=== PATIENT | female | born 1945 | race African-American/Black ===

== ENCOUNTER 2023-09-05 09:43 | Emergency (ER) | payer MEDICARE, OTHER ==
[~2023-09-05] VITALS: Ht 170.2 cm; Wt 93.0 kg
[~2023-09-05 09:43] MED LIST: DICL100G16 TP; FAMO20TA8 PO; GLUC1CAP28 PO; GRAP50CA5 PO; HYDR-4005 PO; KRIL1CAP4 PO; LOPE2CAP14 PO; METH1ADH15 TP; NEOM30OI17 TP; PRED-855 PO; SULF1TAB48 PO; THERMACARE; TURMERIC; VINPOCETINE; [UNRECOGNIZED DRUG - OTHER]; [UNRECOGNIZED DRUG - OTHER]; [UNRECOGNIZED DRUG - OTHER]
[2023-09-05 09:45] VITALS: O2SAT 99
[2023-09-05 10:30] LABS: CLARITY URINE CLEAR (CLEAR); COLOR URINE RED (YELLOW); GLUCOSE URINE NEGATIVE (NEGATIVE); KETONES URINE NEGATIVE (NEGATIVE); LEUKOCYTE ESTERASE URINE 2+ (NEGATIVE); NITRITE URINE NEGATIVE (NEGATIVE); OCCULT BLOOD URINE 3+ (NEGATIVE); PROTEIN URINE 2+ (NEGATIVE); SPECIFIC GRAVITY URINE 1.006 (1.005-1.030); UROBILINOGEN URINE 0.2 E.U./dL (0.2-1.0)
[2023-09-05 10:43] LABS: WBC URINE 15-25 /hpf (0-2)
[2023-09-05 10:44] LABS: BACTERIA URINE TRACE; RBC URINE TNTC /hpf (0-2); SQUAMOUS EPITHELIAL CELL URINE 1+ /lpf (RARE/1+); YEAST URINE NONE SEEN
[2023-09-05 11:00] LABS: PROTHROMBIN TIME 10.9 sec (9.6-11.0)
[2023-09-05 11:19] LABS: BASOPHILS % 0.6 % (0.0-2.0); EOSINOPHILS % 3.4 % (0.0-5.0); HEMATOCRIT. 33.2 % (36.0-48.0); HEMOGLOBIN. 10.9 g/dL (12.0-16.0); LYMPHOCYTES % 25.3 % (20.0-50.0); MEAN CORPUSCULAR HEMOGLOBIN 27.8 pg (28.0-32.0); MEAN CORPUSCULAR HGB CONC 32.9 g/dL (31.0-37.0); MEAN CORPUSCULAR VOLUME 84.5 fL (81.0-99.0); MEAN PLATELET VOLUME 7.3 fl (7.4-10.4); MONOCYTES % 8.7 % (2.0-8.0); PLATELET 359 x1000/uL (130-400); RED BLOOD CELL COUNT 3.93 mill/uL (4.2-5.4); RED CELL DISTRIBUTION WIDTH 16.6 % (11.6-14.6); WHITE BLOOD COUNT 8.5 x1000/uL (4.5-11.0)
[2023-09-05 11:41] LABS: ALANINE AMINOTRANSFERASE 32 IU/L (10-49); ALBUMIN 3.9 g/dL (3.2-4.8); ASPARTATE AMINOTRANSFERASE 38 IU/L (<34); BILIRUBIN TOTAL 0.3 mg/dL (0.1-1.0); CALCIUM 8.6 mg/dL (8.7-10.4); CARBON DIOXIDE 28 mEq/L (21-32); CHLORIDE 104 mEq/L (98-107); CREATININE 0.9 mg/dL (0.6-1.0); GLUCOSE 114 mg/dL (70-105); POTASSIUM 3.6 mEq/L (3.5-5.1); PROTEIN TOTAL 7.1 g/dL (6.0-8.3); SODIUM 138 mEq/L (136-145); UREA NITROGEN BLOOD 8 mg/dL (9-23)
[2023-09-05] MEDS: CEFTRIAXONE 1GM/50ML 50 ML IV ONE (12:15)
[2023-09-05 14:53] VITALS: BP 137/68; PULSE 70; RESP 17; TEMP 97.1
== END 2023-09-05 15:05 | disposition short-term general hospital (02) ==
LOC: ER 09:54 → CANBEDREQ 09-08 00:24
DX: N39.0 Urinary tract infection, site not specified (principal); E11.9 Type 2 diabetes mellitus without complications; Z79.899 Other long term (current) drug therapy
CPT/HCPCS: 80053; 81003; 85025; 85610; 86850; 86900; 86901; 87086; 87186; 87077; 36415; 72170; 99285; J0696; Z7610 ×3

== ENCOUNTER 2023-12-10 18:09 | Emergency (ER) | payer MEDICARE, MEDICAID ==
[~2023-12-10] VITALS: Ht 172.7 cm; Wt 91.0 kg
[2023-12-10 18:11] VITALS: TEMP 99.8; O2SAT 98
[2023-12-10 19:27] VITALS: BP 135/64; PULSE 73; RESP 16
[2023-12-10] MEDS: IBUPROFEN 600MG TABLET PO STA (19:27)
[2023-12-10 19:45] LABS: BASOPHILS % 0.7 % (0.0-2.0); DIFFERENTIAL COMMENT 0; EOSINOPHILS % 2.1 % (0.0-5.0); HEMATOCRIT. 40.1 % (36.0-48.0); HEMOGLOBIN. 13.2 g/dL (12.0-16.0); MEAN CORPUSCULAR HEMOGLOBIN 26.2 pg (28.0-32.0); MEAN CORPUSCULAR HGB CONC 32.8 g/dL (31.0-37.0); MEAN CORPUSCULAR VOLUME 79.8 fL (81.0-99.0); MEAN PLATELET VOLUME 7.7 fl (7.4-10.4); MONOCYTES % 9.9 % (2.0-8.0); NEUTROPHILS % 54.3 % (40.0-76.0); PLATELET 224 x1000/uL (130-400); RED BLOOD CELL COUNT 5.03 mill/uL (4.2-5.4); RED CELL DISTRIBUTION WIDTH 14.9 % (11.6-14.6); WHITE BLOOD COUNT 9.1 x1000/uL (4.5-11.0)
[2023-12-10 19:56] LABS: POTASSIUM 4.3 mEq/L (3.5-5.1)
[2023-12-10 19:57] LABS: CALCIUM 9.9 mg/dL (8.7-10.4)
[2023-12-10 20:02] LABS: CREATININE 1.2 mg/dL (0.6-1.0)
[2023-12-10 20:26] LABS: CLARITY URINE CLEAR (CLEAR); COLOR URINE YELLOW (YELLOW); GLUCOSE URINE NEGATIVE (NEGATIVE); KETONES URINE NEGATIVE (NEGATIVE); LEUKOCYTE ESTERASE URINE 3+ (NEGATIVE); NITRITE URINE NEGATIVE (NEGATIVE); OCCULT BLOOD URINE TRACE (NEGATIVE); PROTEIN URINE NEGATIVE (NEGATIVE); SPECIFIC GRAVITY URINE 1.009 (1.005-1.030); UROBILINOGEN URINE 0.2 E.U./dL (0.2-1.0)
[2023-12-10 20:55] LABS: BACTERIA URINE 1+; RBC URINE 0-2 /hpf (0-2); SQUAMOUS EPITHELIAL CELL URINE FEW /lpf (RARE/1+); WBC URINE 15-25 /hpf (0-2)
[2023-12-10] MEDS ORDERED: IBUP-2028 MT (21:17)
[2023-12-10] MEDS ORDERED: CEFP200T13 MT (21:17)
== END 2023-12-10 20:10 | disposition home or self-care (01) ==
LOC: ER 18:09
DX: N39.0 Urinary tract infection, site not specified (principal); E11.9 Type 2 diabetes mellitus without complications; Z98.890 Other specified postprocedural states
CPT/HCPCS: 36415; 76856; 80048; 81003; 85025; 99284

== ENCOUNTER 2024-08-17 13:47 | Emergency (ER) | payer MEDICARE, OTHER ==
[~2024-08-17] VITALS: Ht 167.6 cm; Wt 70.0 kg
[~2024-08-17 13:47] MED LIST changes: +CIPR-263 MT; -DICL100G16 TP; -SULF1TAB48 PO; -[UNRECOGNIZED DRUG - OTHER]; -[UNRECOGNIZED DRUG - OTHER]
[2024-08-17 13:49] VITALS: BP 137/61; PULSE 70; RESP 16; TEMP 37.1; O2SAT 95
[2024-08-17] MEDS ORDERED: ACETAMINOPHEN 325MG TABLET PO ONE (15:15)
== END 2024-08-17 19:08 | disposition home or self-care (01) ==
LOC: ER 13:55
DX: M25.561 Pain in right knee (principal); M25.562 Pain in left knee; E11.9 Type 2 diabetes mellitus without complications; Z98.890 Other specified postprocedural states; W18.39XA Other fall on same level, initial encounter; Y93.89 Activity, other specified; Y92.89 Other specified places as the place of occurrence of the external cause; Y99.8 Other external cause status
CPT/HCPCS: 72192; 73552; 73560; 99284

== ENCOUNTER 2024-11-08 13:12 | Inpatient (IN) | payer MEDICARE, MEDICAID ==
[~2024-11-08] VITALS: Ht 167.6 cm; Wt 100.0 kg
[2024-11-08 13:17] VITALS: O2SAT 97
[2024-11-08 15:20] LABS: BASOPHILS % 0.9 % (0.0-2.0); EOSINOPHILS % 2.6 % (0.0-5.0); HEMATOCRIT. 36.5 % (36.0-48.0); HEMOGLOBIN. 11.8 g/dL (12.0-16.0); LYMPHOCYTES % 21.4 % (20.0-50.0); MEAN CORPUSCULAR HEMOGLOBIN 26.6 pg (28.0-32.0); MEAN CORPUSCULAR HGB CONC 32.2 g/dL (31.0-37.0); MEAN CORPUSCULAR VOLUME 82.5 fL (81.0-99.0); MEAN PLATELET VOLUME 8.4 fl (7.4-10.4); MONOCYTES % 7.5 % (2.0-8.0); NEUTROPHILS % 67.6 % (40.0-76.0); PLATELET 362 x1000/uL (130-400); RED BLOOD CELL COUNT 4.42 mill/uL (4.2-5.4); RED CELL DISTRIBUTION WIDTH 15.1 % (11.6-14.6); WHITE BLOOD COUNT 9.1 x1000/uL (4.5-11.0)
[2024-11-08 16:55] LABS: CHLORIDE 108 mEq/L (98-107); POTASSIUM 4.2 mEq/L (3.5-5.1); SODIUM 141 mEq/L (136-145)
[2024-11-08] MEDS: KETOROLAC 15MG/ML VIAL IV ONE (16:55)
[2024-11-08 16:56] LABS: CALCIUM 10.6 mg/dL (8.7-10.4); CARBON DIOXIDE 29 mEq/L (21-32)
[2024-11-08 17:01] LABS: CREATININE 1.1 mg/dL (0.6-1.0); GLUCOSE 99 mg/dL (70-105); UREA NITROGEN BLOOD 18 mg/dL (9-23)
[2024-11-08 17:03] LABS: ALANINE AMINOTRANSFERASE 17 IU/L (10-49); ALBUMIN 3.8 g/dL (3.2-4.8); ASPARTATE AMINOTRANSFERASE 20 IU/L (<34); BILIRUBIN TOTAL 0.3 mg/dL (0.1-1.0); PROTEIN TOTAL 7.4 g/dL (6.0-8.3)
[2024-11-08 17:45] VITALS: BP 136/91; PULSE 87; RESP 18; TEMP 36.6; O2SAT 100
[2024-11-08] MEDS ORDERED: CLONIDINE 0.1MG TABLET PO PRN (18:00)
[2024-11-08] MEDS ORDERED: SODIUM CHLORIDE 0.45% 1,000 ML IV ONE (18:00)
[2024-11-08] MEDS ORDERED: MAGNESIUM/ALUMINUM HYDROXIDE/SIMETHICONE 30ML UDC PO PRN (18:00)
[2024-11-08] MEDS ORDERED: GUAIFENESIN 200MG/10ML SUGAR FREE UDC PO PRN (18:00)
[2024-11-08] MEDS ORDERED: KETOROLAC 15MG/ML VIAL IV PRN (18:00)
[2024-11-08] MEDS ORDERED: DOCUSATE SODIUM 100MG CAPSULE PO PRN (18:00)
[2024-11-08] MEDS ORDERED: ACETAMINOPHEN 325MG TABLET PO PRN ×2 (18:00)
[2024-11-08] MEDS ORDERED: IPRATROPIUM/ALBUTEROL 0.5-3(2.5)MG/3ML NEB HHN PRN (18:00)
[2024-11-08] MEDS ORDERED: DEXTROSE 50% WATER 50ML SYRINGE IV PRN (18:30)
[2024-11-08] MEDS ORDERED: TRAMADOL 50MG TABLET PO PRN (18:30)
[2024-11-08 20:00] VITALS: BP 135/54; PULSE 76; RESP 16; TEMP 35.7; O2SAT 97
[2024-11-08 20:19] LABS: CREATINE KINASE 46 IU/L (34-145)
[2024-11-08] MEDS ORDERED: BLOOD SUGAR DIAGNOSTIC STRIP TEST SCH (21:00)
[2024-11-08] MEDS ORDERED: ENOXAPARIN 30MG/0.3ML SYR SUBCUT SCH (21:00)
[2024-11-08] MEDS ORDERED: GABAPENTIN 100MG CAPSULE PO SCH (22:00)
[2024-11-09] MEDS ORDERED: PANTOPRAZOLE SODIUM 40 MG/VIAL IV SCH (09:00)
[2024-11-09] MEDS ORDERED: ENOXAPARIN 40MG/0.4ML SYR SUBCUT SCH (18:00)
== END 2024-11-08 22:21 | disposition left against medical advice (07) | DRG 563 ==
LOC: ER 13:55 → 7EST 16:32 → EDBEDREQ 16:39 → EDBEDREQTM 16:39
PROVIDERS: ADMIT Internal Medicine; ATTEND Internal Medicine
DX: S82.51XA Displaced fracture of medial malleolus of right tibia, initial encounter for closed fracture (principal); I10 Essential (primary) hypertension; E83.52 Hypercalcemia; E11.9 Type 2 diabetes mellitus without complications; Z53.29 Procedure and treatment not carried out because of patient's decision for other reasons; M85.80 Other specified disorders of bone density and structure, unspecified site; Z96.649 Presence of unspecified artificial hip joint; Z79.84 Long term (current) use of oral hypoglycemic drugs; Z87.440 Personal history of urinary (tract) infections; W18.30XA Fall on same level, unspecified, initial encounter; Y93.89 Activity, other specified; Y92.89 Other specified places as the place of occurrence of the external cause; Y99.8 Other external cause status
CPT/HCPCS: 29515; 36415; 71045; 73610; 80053; 82550; 83036; 85025; 99285; J1885

== ENCOUNTER 2025-03-10 13:17 | Emergency (ER) | payer MEDICARE, OTHER ==
[~2025-03-10] VITALS: Ht 175.3 cm; Wt 96.0 kg
[2025-03-10 13:20] VITALS: O2SAT 95
[2025-03-10 13:47] LABS: BASOPHILS % 0.5 % (0.0-2.0); EOSINOPHILS % 4.2 % (0.0-5.0); HEMATOCRIT. 39.9 % (36.0-48.0); HEMOGLOBIN. 12.7 g/dL (12.0-16.0); LYMPHOCYTES % 33.6 % (20.0-50.0); MEAN PLATELET VOLUME 7.7 fl (7.4-10.4); MONOCYTES % 10.0 % (2.0-8.0); NEUTROPHILS % 51.7 % (40.0-76.0); PLATELET 230 x1000/uL (130-400); RED BLOOD CELL COUNT 4.98 mill/uL (4.2-5.4); RED CELL DISTRIBUTION WIDTH 16.2 % (11.6-14.6)
[2025-03-10 14:06] LABS: CREATININE 1.3 mg/dL (0.6-1.0); TROPONIN I HIGH SENSITIVITY < 4 ng/L (3.0-34); UREA NITROGEN BLOOD 10 mg/dL (9-23)
[2025-03-10 14:08] LABS: ASPARTATE AMINOTRANSFERASE 44 IU/L (<34); BILIRUBIN DIRECT < 0.1 mg/dL (<=3.0); BILIRUBIN TOTAL 0.3 mg/dL (0.1-1.0)
[2025-03-10 14:09] LABS: PROTEIN TOTAL 7.6 g/dL (6.0-8.3)
[2025-03-10 15:16] LABS: INR 1.0
[2025-03-10] MEDS: ACETAMINOPHEN 325MG TABLET PO ONE (16:22)
[2025-03-10] MEDS: SODIUM CHLORIDE 0.9% 500 ML IV ONE (16:22)
[2025-03-10 16:43] VITALS: BP 140/86; PULSE 65; RESP 22; TEMP 36.8; O2SAT 100
== END 2025-03-10 16:49 | disposition home or self-care (01) ==
LOC: ER 13:17 → EDBEDREQ 16:22 → EDBEDREQSVC 16:22 → EDBEDREQTM 16:22 → CANBEDREQ 16:46 → ER 16:49
DX: G89.29 Other chronic pain (principal); M25.562 Pain in left knee; M25.561 Pain in right knee; E11.9 Type 2 diabetes mellitus without complications; F03.90 Unspecified dementia, unspecified severity, without behavioral disturbance, psychotic disturbance, mood disturbance, and anxiety; I10 Essential (primary) hypertension; N17.9 Acute kidney failure, unspecified; Z96.649 Presence of unspecified artificial hip joint
CPT/HCPCS: 99285; 70450; 71045; 80076; 80048; 83880; 83690; 83735; 85025; 85610; 85730; 86850; 86900; 86901; 84484; 36415; 72170; 73560; 72125; 72131; 93005; J7040